=== PATIENT | female | born 1960 | race Caucasian/White ===

== ENCOUNTER 2018-04-20 13:56 | Observation (INO) ==
[2018-04-20 14:34] LABS: BASOPHILS # (AUTO) 0.1 X10^3/uL (0.0-0.1); BASOPHILS % (AUTO) 0.6 % (0.2-1.0); EOSINOPHILS # (AUTO) 0.1 x10^3/uL (0.0-0.2); EOSINOPHILS % (AUTO) 0.6 % (0.9-2.9); HEMATOCRIT 43.1 % (36.0-47.0); HEMOGLOBIN 14.8 g/dL (12.0-16.0); LYMPHOCYTES # (AUTO) 1.2 X10^3/uL (1.3-2.9); LYMPHOCYTES % (AUTO) 7.9 % (21.0-51.0); MEAN CORPUSCULAR HEMOGLOBIN 28.2 pg (27.0-34.0); MEAN CORPUSCULAR HGB CONC 34.2 g/dL (33.0-35.0); MEAN CORPUSCULAR VOLUME 82.3 fL (80.0-100.0); MEAN PLATELET VOLUME 8.5 fL (7.4-11.0); MONOCYTES # (AUTO) 0.7 x10^3/uL (0.3-0.8); MONOCYTES % (AUTO) 5.1 % (0.0-13.0); NEUTROPHILS # (AUTO) 12.5 x10^3/uL (2.2-4.8); NEUTROPHILS % (AUTO) 85.8 % (42.0-75.0); PLATELET COUNT 201 X10^3/uL (150.0-450.0); RED BLOOD COUNT 5.24 X10^6/uL (3.5-5.4); RED CELL DISTRIBUTION WIDTH 12.5 % (11.6-16.5); WHITE BLOOD COUNT 14.6 X10^3/uL (3.6-10.0)
[2018-04-20] MEDS ORDERED: NS 1000 ML 1,000 ML IV ONE (14:35)
[2018-04-20] MEDS ORDERED: TYLENOL 500 MG TAB EXTRA STRENGTH PO ONE ×2 (14:36→14:46)
--- NOTE | 2018-04-20 14:38 | DR.FEVERAD ---
HPI Time seen Time Seen by Provider: 04/20/18 14:25 PCP Primary Care Physician: dr osullivan HPI Comment HPI Comment: PATIENT HAVE HAD UTI AND TREATED SINCE JUL THIS YEAR. HAVE DYSURIA, Complaints/Symptoms Chief Complaint Doctor Comments: PAIN IN THE GROIN AREA WITH CHILLS NOTED TODAY. Chief Complaint:: pt was at work in [place] [address] and started shacking and having tremors and had a knot come up in her gronin area. having UTIs since and still having burning when urinating. Nurses notes reviewed Nurses Notes Review: Yes Source History Provided: Patient Mode of Arrival Mode of Arrival: Ambulatory Timing Onset of Chief Complaint: 04/20/18 Came on: Suddenly Duration Duration: Constant Duration: Hours Context Recent: Treated Infection and Antibiotic Symptoms: None History of: None Modifying factors Modifying factors: Nothing Associated signs and symptoms Associated signs and symptoms: Abdominal pain and Nausea PMH PMH Past Medical History: No Past Surgical History: Yes Surgical History: Abdominal Surgery, Appendectomy, GREASE R[employer] WORKER Surgery, Hysterectomy, Thyroidectomy, Tonsillectomy and Other Family History History of Family Medical Conditions: No Social History Does patient currently use any type of tobacco product: No Have you used tobacco products in the last 12 months: No Type of Tobacco Use: None Does any household member use tobacco: No Alcohol Use: None Do you use any recreational Drugs:: No Lives With: Alone Lives Where: Home infectious screening In the last 2 months have you had wt loss of >10#?: NO Have you had fever, night sweats or hemotysis?: No Have you traveled outside the country in the last 6 months?: No Isolation: Standard ROS Review of Systems Constitutional: No Symptoms Reported Eyes: No Symptoms Reported ENTM: No Symptoms Reported Respiratoy: No Symptoms Reported Cardiovascular: No Symptoms Reported and Other (PAIN) Gastrointestinal/Abdominal: Nausea and Other (GROIN ) Genitourinary: Dysuria and Other (GROIN PAIN.) Neurological: No Symptoms Reported Musculoskeletal: No Symptoms Reported Integumentary: No Symptoms Reported Hematologic/Lymphatic: No Symptoms Reported Endocrine: No Symptoms Reported Psychiatric: No Symptoms Reported All Other Systems: Reviewed and Negative PE Vital Signs Vitals: Temperature 97.8 F Pulse Rate [Left Brachial] 75 Pulse Rate 127 Respiratory Rate 18 Blood Pressure [Left Arm] 124/68 Blood Pressure 175/85 O2 Sat by Pulse Oximetry 98 General Limitations: No Limitations General Appearance: Alert and In No Apparent Distress Head Head Exam: Normal Inspection Eyes Eye exam: Normal Appearance ENT ENT Exam: Normal Exam External Ear Exam: Normal External Inspection TM/Canal Exam: Bilateral: Normal Mouth Exam: Normal Inspection Teeth Exam: Normal Inspection Throat Exam: Normal Inspection Neck Neck Exam: Normal Inspection Respiratory Respiratory Exam: Normal Lung Sounds Bilat Respiratory Exam: Bilateral: Clear to Auscultation Cardiovascular Cardiovascular Exam: Regular Rate Abdominal Exam Abdominal Exam: Normal Bowel Sounds, Soft, Tenderness and Other (TENDERNESS GROIN WITH REDNESS.); negative Hernia Extremities Extremities Exam: Normal Inspection Back Back Exam: Normal Inspection Neurologic Neurological Exam: Alert Psychiatric Psychiatric Exam: Normal Affect Skin Skin Exam: Intact MDM Differential Diagnosis Differential Diagnosis: Dehydration, Pyelonephritis, UTI and Sepsis COURSE Treatment Treatment: SEE ORDERS. Education/Counseling Education/Counseling: Patient Educated On: Diagnosis ROR Labs Reviewed Laboratory Results Reviewed?: Yes Result Diagrams: 04/23/18 05:20 04/23/18 05:20 Laboratory: 04/20/18 14:16 Blood Blood Culture - Final 04/20/18 14:34 Urine,Clean Catch Urine Culture - Final Escherichia Coli WBC 7.6 X10^3/uL (3.6-10.0) 04/23/18 05:20 RBC 4.24 X10^6/uL (3.5-5.4) 04/23/18 05:20 Hgb 12.0 g/dL (12.0-16.0) 04/23/18 05:20 Hct 35.0 % (36.0-47.0) L 04/23/18 05:20 MCV 82.5 fL (80.0-100.0) 04/23/18 05:20 MCH 28.4 pg (27.0-34.0) 04/23/18 05:20 MCHC 34.4 g/dL (33.0-35.0) 04/23/18 05:20 RDW 12.8 % (11.6-16.5) 04/23/18 05:20 Plt Count 166 X10^3/uL (150.0-450.0) 04/23/18 05:20 MPV 8.8 fL (7.4-11.0) 04/23/18 05:20 Neut % (Auto) 59.9 % (42.0-75.0) 04/23/18 05:20 Lymph % (Auto) 23.1 % (21.0-51.0) 04/23/18 05:20 [place] % (Auto) 13.7 % (0.0-13.0) H 04/23/18 05:20 Eos % (Auto) 2.8 % (0.9-2.9) 04/23/18 05:20 Baso % (Auto) 0.5 % (0.2-1.0) 04/23/18 05:20 Neut # (Auto) 4.6 x10^3/uL (2.2-4.8) 04/23/18 05:20 Lymph # (Auto) 1.8 X10^3/uL (1.3-2.9) 04/23/18 05:20 [place] # (Auto) 1.0 x10^3/uL (0.3-0.8) H 04/23/18 05:20 Eos # (Auto) 0.2 x10^3/uL (0.0-0.2) 04/23/18 05:20 Baso # (Auto) 0.0 X10^3/uL (0.0-0.1) 04/23/18 05:20 Absolute Nucleated RBC 0.0 /100WBC 04/23/18 05:20 D-Dimer 560 ng/mL (0-400) H* 04/20/18 14:16 Sodium 142 mmol/L (136-145) 04/23/18 05:20 Corrected Sodium TNP 04/23/18 05:20 Potassium 3.7 mmol/L (3.5-5.1) 04/23/18 05:20 Chloride 108 mmol/L (98-107) H 04/23/18 05:20 Carbon Dioxide 27.3 mmol/L (21-32) 04/23/18 05:20 BUN 6 mg/dL (7-18) L 04/23/18 05:20 Creatinine 0.85 mg/dL (0.55-1.02) 04/23/18 05:20 Est GFR (MDRD) Af Amer > 60 (>60) 04/23/18 05:20 Est GFR (MDRD) Non-Af > 60 (>60) 04/23/18 05:20 Glucose 99 mg/dL (65-99) 04/23/18 05:20 Lactic Acid 1.0 mmol/L (0.4-2.0) 04/22/18 06:10 Calcium 8.2 mg/dL (8.5-10.1) L 04/23/18 05:20 Corrected Calcium 9.5 mg/dL (8.5-10.1) 04/23/18 05:20 Total Bilirubin 0.30 mg/dL (0.2-1.0) 04/23/18 05:20 AST 17 Units/L (15-37) 04/23/18 05:20 ALT 30 Units/L (12-78) 04/23/18 05:20 Alkaline Phosphatase 63 Units/L (46-116) 04/23/18 05:20 Total Protein 6.5 g/dL (6.4-8.2) 04/23/18 05:20 Albumin 2.4 g/dL (3.4-5.0) L 04/23/18 05:20 Globulin 4.1 g/dL (2.5-4.5) 04/23/18 05:20 Albumin/Globulin Ratio 0.6 Ratio (1.1-2.1) L 04/23/18 05:20 Specimen Type Clean catch urine 04/20/18 14:34 Urine Color Yellow (YELLOW) 04/20/18 14:34 Urine Appearance Slightly hazy (CLEAR) 04/20/18 14:34 Urine pH 6.0 (5.0 - 8.0) 04/20/18 14:34 Ur Specific [place] 1.015 (1.000-1.030) 04/20/18 14:34 Urine Protein 2+ (NEGATIVE) 04/20/18 14:34 Urine Glucose (UA) Negative (NEGATIVE) 04/20/18 14:34 Urine Ketones Negative (NEGATIVE) 04/20/18 14:34 Urine Occult Blood 1+ (NEGATIVE) 04/20/18 14:34 Urine Nitrite Positive (NEGATIVE) 04/20/18 14:34 Urine Bilirubin Negative (NEGATIVE) 04/20/18 14:34 Urine Urobilinogen Normal (NORMAL) 04/20/18 14:34 Ur Leukocyte Esterase 1+ (NEGATIVE) 04/20/18 14:34 Urine RBC 0-2 /HPF (NONE SEEN) 04/20/18 14:34 Urine WBC 30-50 /HPF (NONE SEEN) 04/20/18 14:34 Ur Squamous Epith Cells Few /HPF (NEGATIVE) 04/20/18 14:34 Urine Bacteria 3+ /HPF (NEGATIVE) 04/20/18 14:34 Ur Culture Indicated? Yes/culture set up 04/20/18 14:34 Vancomycin Trough 6.0 ug/mL (15-20) L 04/22/18 08:20 XRAY XRAY Interpreted by: Radiologist XRAY Findings: REPORT NOTED. Instructions Instructions: Cellulitis, Adult Heartburn Hypothyroidism Forms: Patient Portal
[2018-04-20] MEDS ORDERED: NS 1000 ML 1,000 ML ONE (14:43)
[2018-04-20 14:45] LABS: BILIRUBIN,URINE NEGATIVE (NEGATIVE); BLOOD/HEMOGLOBIN,URINE 1+ (NEGATIVE); GLUCOSE, URINE NEGATIVE (NEGATIVE); KETONES,URINE NEGATIVE (NEGATIVE); LEUKOCYTE ESTERASE ,URINE 1+ (NEGATIVE); NITRITES,URINE POSITIVE (NEGATIVE); PROTEIN,URINE 2+ (NEGATIVE); UROBILINOGEN,URINE NORMAL (NORMAL)
[2018-04-20 14:47] LABS: ALANINE AMINOTRANSFERASE 33 Units/L (12-78); ALBUMIN 4.2 g/dL (3.4-5.0); ALKALINE PHOSPHATASE 70 Units/L (46-116); ASPARTATE AMINO TRANSFERASE 23 Units/L (15-37); BLOOD UREA NITROGEN 16 mg/dL (7-18); CALCIUM 9.2 mg/dL (8.5-10.1); CARBON DIOXIDE 26.5 mmol/L (21-32); CHLORIDE 100 mmol/L (98-107); CREATININE 0.94 mg/dL (0.55-1.02); SODIUM 137 mmol/L (136-145); TOTAL PROTEIN 8.4 g/dL (6.4-8.2); eGFR NON BLACK RACES > 60 (>60)
[2018-04-20 14:56] LABS: APPEARANCE,URINE SLIGHTLY HAZY (CLEAR); COLOR,URINE YELLOW (YELLOW)
[2018-04-20 14:57] LABS: BACTERIA,URINE 3+ /HPF (NEGATIVE); RBC,URINE 0-2 /HPF (NONE SEEN); SQUAMOUS EPITHELIAL CELL,UR FEW /HPF (NEGATIVE)
[2018-04-20 14:59] LABS: LACTIC ACID 2.4 mmol/L (0.4-2.0)
[2018-04-20] MEDS ORDERED: ZOSYN VIAL 3.375 GRAMS 3.375 G in NS 100 ML IV + SPIKE MINIBAG* 100 ML IV ONE (15:13)
[2018-04-20] MEDS ORDERED: ZOSYN VIAL 3.375 GRAMS IV ONE (15:53)
[2018-04-20] MEDS ORDERED: NS 100 ML IV + SPIKE MINIBAG* 100 ML IV ONE (15:54)
[2018-04-20] MEDS ORDERED: DEMEROL INJ IVP ONE (16:12)
[2018-04-20] MEDS ORDERED: ZOFRAN INJ 4 MG VIAL IVP ONE (16:12)
[2018-04-20] MEDS ORDERED: ZOFRAN INJ 4 MG VIAL ONE (16:19)
[2018-04-20] MEDS ORDERED: DEMEROL INJ ONE (16:19)
--- NOTE | 2018-04-20 16:48 | VAS ---
History: Left leg pain and fever and elevated white blood cell count Study: Venous Doppler of the left lower extremity Findings: There is augmentation compression and color Doppler flow blood flow in the left common femo ral and superficial femoral and popliteal veins. There is an enlarged lymph node in left groin measur ing 3.7 x 1 . 9 cm. Impression: 1. No evidence for deep venous thrombosis in the left lower extremity 2. Enlarged inguinal lymph node Reported By:
[2018-04-20] MEDS ORDERED: PHENERGAN INJ 25 MG IV ONE (17:03)
[2018-04-20] MEDS ORDERED: PHENERGAN INJ 25 MG ONE (17:04)
[2018-04-20] MEDS ORDERED: NS 1/2 1000 ML IV 1,000 ML IV ONE (19:37)
[2018-04-20] MEDS: TYLENOL 325 MG TAB PO PRN (19:53)
[2018-04-20] MEDS: NS 1/2 1000 ML IV 1,000 ML IV SCH (19:53)
[2018-04-20] MEDS ORDERED: PHENERGAN TAB 25 MG PO PRN (19:57)
[2018-04-20 20:30] VITALS: BMI 30.3
[2018-04-20] MEDS: VANCOMYCIN HCL 1 GM VIAL 1 G in D5W 250 ML IV 250 ML IV SCH (20:46)
[2018-04-20] MEDS: ZOSYN VIAL 3.375 GRAMS 3.375 G in NS 100 ML IV + SPIKE MINIBAG* 100 ML IV SCH (22:14)
[2018-04-21] MEDS ORDERED: NS 1/2 1000 ML IV 1,000 ML IV ONE ×2 (04:24→18:39)
[2018-04-21] MEDS: NS 1/2 1000 ML IV 1,000 ML IV SCH ×3 (04:29→18:26)
[2018-04-21] MEDS: ZOSYN VIAL 3.375 GRAMS 3.375 G in NS 100 ML IV + SPIKE MINIBAG* 100 ML IV SCH ×3 (05:03→22:15)
[2018-04-21 06:11] LABS: BASOPHILS % (AUTO) 0.2 % (0.2-1.0); HEMATOCRIT 39.7 % (36.0-47.0); HEMOGLOBIN 13.6 g/dL (12.0-16.0); LYMPHOCYTES # (AUTO) 0.8 X10^3/uL (1.3-2.9); LYMPHOCYTES % (AUTO) 4.1 % (21.0-51.0); MEAN CORPUSCULAR HEMOGLOBIN 28.2 pg (27.0-34.0); MEAN CORPUSCULAR HGB CONC 34.2 g/dL (33.0-35.0); MEAN CORPUSCULAR VOLUME 82.3 fL (80.0-100.0); MEAN PLATELET VOLUME 8.6 fL (7.4-11.0); MONOCYTES # (AUTO) 1.3 x10^3/uL (0.3-0.8); NEUTROPHILS # (AUTO) 16.3 x10^3/uL (2.2-4.8); NEUTROPHILS % (AUTO) 88.7 % (42.0-75.0); PLATELET COUNT 180 X10^3/uL (150.0-450.0); RED BLOOD COUNT 4.83 X10^6/uL (3.5-5.4); RED CELL DISTRIBUTION WIDTH 12.7 % (11.6-16.5); WHITE BLOOD COUNT 18.4 X10^3/uL (3.6-10.0)
[2018-04-21 06:20] LABS: ALANINE AMINOTRANSFERASE 48 Units/L (12-78); ALBUMIN 3.1 g/dL (3.4-5.0); ALKALINE PHOSPHATASE 61 Units/L (46-116); ASPARTATE AMINO TRANSFERASE 37 Units/L (15-37); BLOOD UREA NITROGEN 10 mg/dL (7-18); CALCIUM 8.5 mg/dL (8.5-10.1); CARBON DIOXIDE 25.7 mmol/L (21-32); CHLORIDE 102 mmol/L (98-107); COR CA(FOR HYPOALB) 9.2 mg/dL (8.5-10.1); COR NA(FOR HYPERGLY) 136 mmol/L (136-145); CREATININE 0.88 mg/dL (0.55-1.02); SODIUM 135 mmol/L (136-145); TOTAL PROTEIN 7.2 g/dL (6.4-8.2); eGFR NON BLACK RACES > 60 (>60)
[2018-04-21] MEDS: VANCOMYCIN HCL 1 GM VIAL 1 G in D5W 250 ML IV 250 ML IV SCH ×2 (08:18→20:51)
[2018-04-21] MEDS: TYLENOL 325 MG TAB PO PRN (08:53)
[2018-04-21] MEDS: MORPHINE SULFATE INJ 4 MG IVP PRN ×2 (10:25→19:36)
[2018-04-21] MEDS: FIORICET TAB PO PRN (15:49)
--- NOTE | 2018-04-21 16:56 | DR.H&P ---
H&P - History & Physical for Day of: H&P Date: 04/20/18 - Chief Complaint Chief Complaint: FEVER, CHILLS, LEFT LEG PAIN AND SWELLING - History of Present Illness History of Present Illness: IS A 57 YEAR OLD PATIENT OF . SHE PRESENTED TO THE ER WITH COMPLAINTS OF FEVER, CHILLS, AND A MASS TO THE GROIN AREA. SHE ALSO REPORTS BURNING ON URINATION. ON EXAMINATION, SHE IS NOTED WITH REDNESS TO THE LEFT UPPER LEG WELL A MASS THE LEFT GROIN. SHE REPORTS PAIN TO AREA. ON ARRIVAL, VITALS WERE 103.5, 127, 18, 98%, 175/85. LABS WERE OBTAINED. ABNORMAL LAB VALUES INCLUDE THE FOLLOWING: WBC 14.6, D-DIMER 560, LACTIC ACID 2.4, TOTAL PROTEIN 8.4. URINALYSIS REVEALED WBC 30-50, RBC 0-2, LEUKOCYTES 1+, BACTERIA 3+, PROTEIN 2+. URINE CULTURE PENDING. A VENOUS DOPPLER OF THE LEFT LOWER EXTREMITY WAS OBTAINED AND REVEALED: No evidence for deep venous thrombosis in the left lower extremity. Enlarged inguinal lymph node. SHE WAS GIVEN PHENERGAN 12.5MG IV, ZOFRAN 4MG IV, DEMEROL 25MG IV, TYLENOL 1000MG, ZOSYN 3.375GM, AND A NORMAL SALINE BOLUS IN THE ER. ONLY SLIGHT IMPROVEMENT IN SYMPTOMS NOTED. SHE WAS ADMITTED TO THE HOSPITAL FOR FURTHER EVALUATION AND TREATMENT. SHE WAS STARTED ON ZOSYN 3.375GM IV Q8H, VANCOMYCIN 1GM IV Q12H, MORPHIN 4MG IV Q6H PRN PAIN, AND NS AT 125ML/HR. WE PLAN TO FOLLOW UP WITH AM LABS AND CONTINUE TO MONITOR PATIENT. - Past Surgical History Surgical History: Hysterectomy, Tonsillectomy - Social History Does patient currently use any type of tobacco product: No Have you used tobacco products in the last 12 months: No Type of Tobacco Use: None Does any household member use tobacco: No Alcohol Use: None Drug Use: None - Medications Home Medications: No Known Drug Allergies Allergy (Verified 04/20/18 14:24) CONTINUE taking the following medications estradiol 1 mg PO DAILY 04/20/18 [History] - Physical Exam Vital Signs: Temperature 98.8 F Pulse Rate [Left Brachial] 96 Pulse Rate 127 Respiratory Rate 18 Blood Pressure [Left Arm] 129/80 Blood Pressure 175/85 O2 Sat by Pulse Oximetry 96 - Allergies Allergies/Adverse Reactions: Allergies Allergy/AdvReac Type Severity Reaction Status Date / Time No Known Drug Allergies Allergy Verified 04/20/18 14:24
[2018-04-21] MEDS ORDERED: NS 100 ML IV 100 ML IV ONE (17:45)
--- NOTE | 2018-04-21 18:36 | CT ---
CT abdomen and pelvis with contrast Indication: Abdominal pain, left groin cellulitis Comparison: None Technique: CT images of the abdomen and pelvis were obtained with IV and oral contrast. Automatic exp osure control was utilized. Findings: The lung bases are grossly clear. No acute osseous abnormality. There is subcutaneous fat stranding within the left inguinal region and anterior proximal left lower extremity associated with several mildly enlarged but morphologically normal appearing inguinal lymph nodes. No discrete collection or soft tissue gas observed. The inguinal vessels appear grossly taryn l for technique. The liver, gallbladder, spleen, stomach, duodenum, pancreas, adrenals, and kidneys demonstrate no sig nificant abnormality. No significant thickening or dilatation of the lower GI tract. Previous appende ctomy and hysterectomy noted. The urinary bladder and rectum are unremarkable. No free fluid or intra -abdominal adenopathy. Impression: Nonspecific left inguinal and proximal thigh subcutaneous fat stranding, suggestive for c ellulitis without discrete collection or soft tissue gas. [place] left inguinal lymph nodes are likely reactive. Otherwise no acute abnormality within the abdomen or pelvis. Reported By:
--- NOTE | 2018-04-21 20:44 | PCM.PROG ---
Progress Note - Progress Note for Day of Date of Exam: 04/21/18 - Subjective Subjective: WAS ADMITTED FOR CELLULITIS OF THE LEFT GROIN AND AN ENLARGED INGUINAL HERNIA. TODAY, SHE IS ALERT AND ORIENTED, LYING IN BED ON MORNING ROUNDS. SHE IS NOTED WITH COMPLAINTS OF TENDERNESS TO THE LEFT GROIN AND LEG. SHE ALSO COMPLAINS OF A HEADACHE. ON EXAMINATION, REDNESS APPEARS TO HAVE INCREASED AND IS NOW OUTSIDE OF PREVIOUSLY MARKED AREAS OF REDNESS. HER VITALS TODAY ARE 100.6-111-18-96%-123/68. LABS WERE OBTAINED. ABNORMAL LAB VALUES INCLUDE THE FOLLOWING: WBC INCREASED TO 18.4, SODIUM 135, GLUCOSE 122, ALBUMIN 3.1. SHE IS CURRENTLY RECEIVING IV VANCOMYCIN AND ZOSYN. WE WILL START FIORICET 2TABS QID PRN PAIN AND OBTAIN AN ABDOMEN/PELVIS CT WITH CONTRAST, WITH FURTHER ATTENTION TO THE LEFT GROIN. OTHERWISE, WE PLAN TO FOLLOW UP WITH AM LABS AND CONTINUE TO MONITOR PATIENT. - Past Medical Family Social History Past Med/Fam/Surg Hx: No changes since H&P Allergies: Allergies No Known Drug Allergies Allergy (Verified 04/20/18 14:24) - Review of Systems ROS: No change since H&P - Vital Signs and I&O's Vital Signs: Temperature 98.8 F Pulse Rate [Left Brachial] 96 Pulse Rate 127 Respiratory Rate 18 Blood Pressure [Left Arm] 129/80 Blood Pressure 175/85 O2 Sat by Pulse Oximetry 96 Intake and Output: Intake & Output 04/19/18 04/20/18 04/21/18 04/22/18 11:59 11:59 11:59 11:59 Intake Total 1675 / 1675 700 / 700 Balance 1675 / 1675 700 / 700 - Physical Exam Oriented: Normal Eyes: Normal Ear: Normal Nose: Normal Throat: Normal Respiratory: Normal Cardiovascular: Normal : Normal Auscultation: Bowel Sounds: Normal Palpation: Normal Tenderness: Suprapubic, Mild. negative: Rebound, Guarding, Rigidity Skin: Red (LEFT GROIN ), Tender, Hot Musculoskeletal: Normal Psychiatric: Normal Mood Description: Calm Affect: Normal Speech Pattern: Clear, Appropriate - Laboratory and Diagnostics Result Diagrams: 04/21/18 05:20 04/21/18 05:20 Labs: 04/20/18 14:34 Urine,Clean Catch Urine Culture - Preliminary Laboratory WBC 18.4 X10^3/uL (3.6-10.0) H 04/21/18 05:20 RBC 4.83 X10^6/uL (3.5-5.4) 04/21/18 05:20 Hgb 13.6 g/dL (12.0-16.0) 04/21/18 05:20 Hct 39.7 % (36.0-47.0) 04/21/18 05:20 MCV 82.3 fL (80.0-100.0) 04/21/18 05:20 MCH 28.2 pg (27.0-34.0) 04/21/18 05:20 MCHC 34.2 g/dL (33.0-35.0) 04/21/18 05:20 RDW 12.7 % (11.6-16.5) 04/21/18 05:20 Plt Count 180 X10^3/uL (150.0-450.0) 04/21/18 05:20 MPV 8.6 fL (7.4-11.0) 04/21/18 05:20 Neut % (Auto) 88.7 % (42.0-75.0) H 04/21/18 05:20 Lymph % (Auto) 4.1 % (21.0-51.0) L 04/21/18 05:20 [place] % (Auto) 7.0 % (0.0-13.0) 04/21/18 05:20 Eos % (Auto) 0.0 % (0.9-2.9) L 04/21/18 05:20 Baso % (Auto) 0.2 % (0.2-1.0) 04/21/18 05:20 Neut # (Auto) 16.3 x10^3/uL (2.2-4.8) H 04/21/18 05:20 Lymph # (Auto) 0.8 X10^3/uL (1.3-2.9) L 04/21/18 05:20 [place] # (Auto) 1.3 x10^3/uL (0.3-0.8) H 04/21/18 05:20 Eos # (Auto) 0.0 x10^3/uL (0.0-0.2) 04/21/18 05:20 Baso # (Auto) 0.0 X10^3/uL (0.0-0.1) 04/21/18 05:20 Absolute Nucleated RBC 0.0 /100WBC 04/21/18 05:20 D-Dimer 560 ng/mL (0-400) H* 04/20/18 14:16 Sodium 135 mmol/L (136-145) L 04/21/18 05:20 Corrected Sodium 136 mmol/L (136-145) 04/21/18 05:20 Potassium 4.2 mmol/L (3.5-5.1) 04/21/18 05:20 Chloride 102 mmol/L (98-107) 04/21/18 05:20 Carbon Dioxide 25.7 mmol/L (21-32) 04/21/18 05:20 BUN 10 mg/dL (7-18) 04/21/18 05:20 Creatinine 0.88 mg/dL (0.55-1.02) 04/21/18 05:20 Est GFR (MDRD) Af Amer > 60 (>60) 04/21/18 05:20 Est GFR (MDRD) Non-Af > 60 (>60) 04/21/18 05:20 Glucose 122 mg/dL (65-99) H 04/21/18 05:20 Lactic Acid 2.4 mmol/L (0.4-2.0) H 04/20/18 14:16 Calcium 8.5 mg/dL (8.5-10.1) 04/21/18 05:20 Corrected Calcium 9.2 mg/dL (8.5-10.1) 04/21/18 05:20 Total Bilirubin 1.00 mg/dL (0.2-1.0) 04/21/18 05:20 AST 37 Units/L (15-37) 04/21/18 05:20 ALT 48 Units/L (12-78) 04/21/18 05:20 Alkaline Phosphatase 61 Units/L (46-116) 04/21/18 05:20 Total Protein 7.2 g/dL (6.4-8.2) 04/21/18 05:20 Albumin 3.1 g/dL (3.4-5.0) L 04/21/18 05:20 Globulin 4.1 g/dL (2.5-4.5) 04/21/18 05:20 Albumin/Globulin Ratio 0.8 Ratio (1.1-2.1) L 04/21/18 05:20 Specimen Type Clean catch urine 04/20/18 14:34 Urine Color Yellow (YELLOW) 04/20/18 14:34 Urine Appearance Slightly hazy (CLEAR) 04/20/18 14:34 Urine pH 6.0 (5.0 - 8.0) 04/20/18 14:34 Ur Specific [place] 1.015 (1.000-1.030) 04/20/18 14:34 Urine Protein 2+ (NEGATIVE) 04/20/18 14:34 Urine Glucose (UA) Negative (NEGATIVE) 04/20/18 14:34 Urine Ketones Negative (NEGATIVE) 04/20/18 14:34 Urine Occult Blood 1+ (NEGATIVE) 04/20/18 14:34 Urine Nitrite Positive (NEGATIVE) 04/20/18 14:34 Urine Bilirubin Negative (NEGATIVE) 04/20/18 14:34 Urine Urobilinogen Normal (NORMAL) 04/20/18 14:34 Ur Leukocyte Esterase 1+ (NEGATIVE) 04/20/18 14:34 Urine RBC 0-2 /HPF (NONE SEEN) 04/20/18 14:34 Urine WBC 30-50 /HPF (NONE SEEN) 04/20/18 14:34 Ur Squamous Epith Cells Few /HPF (NEGATIVE) 04/20/18 14:34 Urine Bacteria 3+ /HPF (NEGATIVE) 04/20/18 14:34 Ur Culture Indicated? Yes/culture set up 04/20/18 14:34 - Plan (1) Lower extremity cellulitis Status: Acute Qualifiers: Laterality: left Qualified Code(s): L03.116 - Cellulitis of left lower limb Plan: IV VANCOMYCIN, IV ZOSYN, OBTAIN CT WITH CONTAST, CONTINUE TO MONITOR
[2018-04-22] MEDS: MORPHINE SULFATE INJ 4 MG IVP PRN ×2 (02:40→08:29)
[2018-04-22] MEDS ORDERED: NS 1/2 1000 ML IV 1,000 ML IV ONE ×3 (04:12→20:13)
[2018-04-22] MEDS: NS 1/2 1000 ML IV 1,000 ML IV SCH ×4 (04:20→23:00)
[2018-04-22] MEDS: ZOSYN VIAL 3.375 GRAMS 3.375 G in NS 100 ML IV + SPIKE MINIBAG* 100 ML IV SCH ×3 (05:45→22:50)
[2018-04-22 06:01] LABS: BASOPHILS % (AUTO) 0.4 % (0.2-1.0); EOSINOPHILS # (AUTO) 0.1 x10^3/uL (0.0-0.2); EOSINOPHILS % (AUTO) 1.1 % (0.9-2.9); HEMATOCRIT 36.2 % (36.0-47.0); HEMOGLOBIN 12.2 g/dL (12.0-16.0); LYMPHOCYTES % (AUTO) 15.8 % (21.0-51.0); MEAN CORPUSCULAR HEMOGLOBIN 27.9 pg (27.0-34.0); MEAN CORPUSCULAR HGB CONC 33.7 g/dL (33.0-35.0); MEAN CORPUSCULAR VOLUME 82.8 fL (80.0-100.0); MEAN PLATELET VOLUME 8.7 fL (7.4-11.0); MONOCYTES # (AUTO) 1.2 x10^3/uL (0.3-0.8); MONOCYTES % (AUTO) 9.4 % (0.0-13.0); NEUTROPHILS # (AUTO) 9.2 x10^3/uL (2.2-4.8); NEUTROPHILS % (AUTO) 73.3 % (42.0-75.0); PLATELET COUNT 155 X10^3/uL (150.0-450.0); RED BLOOD COUNT 4.37 X10^6/uL (3.5-5.4); RED CELL DISTRIBUTION WIDTH 12.9 % (11.6-16.5); WHITE BLOOD COUNT 12.5 X10^3/uL (3.6-10.0)
[2018-04-22 06:10] LABS: ALANINE AMINOTRANSFERASE 37 Units/L (12-78); ALBUMIN 2.5 g/dL (3.4-5.0); ALKALINE PHOSPHATASE 62 Units/L (46-116); ASPARTATE AMINO TRANSFERASE 20 Units/L (15-37); BLOOD UREA NITROGEN 7 mg/dL (7-18); CALCIUM 8.1 mg/dL (8.5-10.1); CARBON DIOXIDE 26.2 mmol/L (21-32); CHLORIDE 105 mmol/L (98-107); COR CA(FOR HYPOALB) 9.3 mg/dL (8.5-10.1); CREATININE 0.89 mg/dL (0.55-1.02); SODIUM 138 mmol/L (136-145); TOTAL PROTEIN 6.5 g/dL (6.4-8.2); eGFR NON BLACK RACES > 60 (>60)
[2018-04-22] MEDS: FIORICET TAB PO PRN (08:28)
[2018-04-22] MEDS ORDERED: PHARMACY COMMENT IV NR (08:30)
[2018-04-22 08:59] LABS: CREATININE 0.79 mg/dL (0.55-1.02)
[2018-04-22] MEDS: VANCOMYCIN HCL 1 GM VIAL 1 G in D5W 250 ML IV 250 ML IV SCH (09:34)
[2018-04-22] MEDS ORDERED: VANCOMYCIN HCL 500 MG VIAL ONE ×2 (09:39→20:35)
[2018-04-22] MEDS: VANCOMYCIN HCL 1 GM VIAL 1 G, VANCOMYCIN HCL 500 MG VIAL 250 MG in D5W 250 ML IV 250 ML IV SCH ×2 (09:57→21:07)
[2018-04-22] MEDS: TORADOL 30 MG VIAL IVP SCH ×3 (11:30→21:09)
[2018-04-22] MEDS ORDERED: ZOFRAN INJ 4 MG VIAL ONE (17:40)
[2018-04-22] MEDS ORDERED: ZOFRAN INJ 4 MG VIAL IVP PRN (17:42)
[2018-04-22] MEDS ORDERED: D5W 250 ML IV 250 ML IV ONE (20:35)
[2018-04-22] MEDS ORDERED: VANCOMYCIN HCL 1 GM VIAL ONE (20:35)
[2018-04-23] MEDS: TORADOL 30 MG VIAL IVP SCH ×2 (03:54→10:06)
[2018-04-23] MEDS: NS 1/2 1000 ML IV 1,000 ML IV SCH (03:54)
[2018-04-23] MEDS: ZOSYN VIAL 3.375 GRAMS 3.375 G in NS 100 ML IV + SPIKE MINIBAG* 100 ML IV SCH (05:40)
[2018-04-23 06:04] LABS: ALANINE AMINOTRANSFERASE 30 Units/L (12-78); ALBUMIN 2.4 g/dL (3.4-5.0); ALKALINE PHOSPHATASE 63 Units/L (46-116); ASPARTATE AMINO TRANSFERASE 17 Units/L (15-37); BLOOD UREA NITROGEN 6 mg/dL (7-18); CALCIUM 8.2 mg/dL (8.5-10.1); CARBON DIOXIDE 27.3 mmol/L (21-32); CHLORIDE 108 mmol/L (98-107); COR CA(FOR HYPOALB) 9.5 mg/dL (8.5-10.1); CREATININE 0.85 mg/dL (0.55-1.02); SODIUM 142 mmol/L (136-145); TOTAL PROTEIN 6.5 g/dL (6.4-8.2); eGFR NON BLACK RACES > 60 (>60)
[2018-04-23 06:05] LABS: BASOPHILS % (AUTO) 0.5 % (0.2-1.0); EOSINOPHILS # (AUTO) 0.2 x10^3/uL (0.0-0.2); EOSINOPHILS % (AUTO) 2.8 % (0.9-2.9); LYMPHOCYTES # (AUTO) 1.8 X10^3/uL (1.3-2.9); LYMPHOCYTES % (AUTO) 23.1 % (21.0-51.0); MEAN CORPUSCULAR HEMOGLOBIN 28.4 pg (27.0-34.0); MEAN CORPUSCULAR HGB CONC 34.4 g/dL (33.0-35.0); MEAN CORPUSCULAR VOLUME 82.5 fL (80.0-100.0); MEAN PLATELET VOLUME 8.8 fL (7.4-11.0); MONOCYTES % (AUTO) 13.7 % (0.0-13.0); NEUTROPHILS # (AUTO) 4.6 x10^3/uL (2.2-4.8); NEUTROPHILS % (AUTO) 59.9 % (42.0-75.0); PLATELET COUNT 166 X10^3/uL (150.0-450.0); RED BLOOD COUNT 4.24 X10^6/uL (3.5-5.4); RED CELL DISTRIBUTION WIDTH 12.8 % (11.6-16.5); WHITE BLOOD COUNT 7.6 X10^3/uL (3.6-10.0)
[2018-04-23] MEDS ORDERED: NS 1/2 1000 ML IV 0 ML IV ONE (08:47)
[2018-04-23] MEDS: TYLENOL 325 MG TAB PO PRN (09:22)
[2018-04-23 12:15] VITALS: BP 124/68
[2018-04-23] MEDS ORDERED: PHARMACY COMMENT IV NR (20:30)
--- NOTE | 2018-06-08 22:19 | DR.CARTERD ---
- Discharge Summary for: Discharge Summary for Date of:: 04/23/18 - Admission Date Date of Admission: 04/20/18 - Admission Diagnoses Admission Diagnosis: (1) Lower extremity cellulitis - Discharge Date Discharge Date: 04/23/18 - Discharge Diagnoses Discharge Diagnosis: (1) Lower extremity cellulitis - Hospital Course Hospital Course: DAY ONE, IS A 57 YEAR OLD PATIENT OF . SHE PRESENTED TO THE ER WITH COMPLAINTS OF FEVER, CHILLS, AND A MASS TO THE GROIN AREA. SHE ALSO REPORTED BURNING ON URINATION. ON EXAMINATION, SHE WAS NOTED WITH REDNESS TO THE LEFT UPPER LEG WELL A MASS THE LEFT GROIN. SHE REPORTED PAIN TO AREA. ON ARRIVAL, VITALS WERE 103.5, 127, 18, 98%, 175/85. LABS WERE OBTAINED. ABNORMAL LAB VALUES INCLUDE THE FOLLOWING: WBC 14.6, D-DIMER 560, LACTIC ACID 2.4, TOTAL PROTEIN 8.4. URINALYSIS REVEALED WBC 30-50, RBC 0-2, LEUKOCYTES 1+, BACTERIA 3+, PROTEIN 2+. URINE CULTURE PENDING. A VENOUS DOPPLER OF THE LEFT LOWER EXTREMITY WAS OBTAINED AND REVEALED: No evidence for deep venous thrombosis in the left lower extremity. Enlarged inguinal lymph node. SHE WAS GIVEN PHENERGAN 12.5MG IV, ZOFRAN 4MG IV, DEMEROL 25MG IV, TYLENOL 1000MG, ZOSYN 3.375GM, AND A NORMAL SALINE BOLUS IN THE ER. ONLY SLIGHT IMPROVEMENT IN SYMPTOMS NOTED. SHE WAS ADMITTED TO THE HOSPITAL FOR FURTHER EVALUATION AND TREATMENT. SHE WAS STARTED ON ZOSYN 3.375GM IV Q8H, VANCOMYCIN 1GM IV Q12H, MORPHIN 4MG IV Q6H PRN PAIN, AND NS AT 125ML/HR. WE PLAN TO FOLLOW UP WITH AM LABS AND CONTINUE TO MONITOR PATIENT. DAY TWO, SHE WAS ALERT AND ORIENTED, LYING IN BED ON MORNING ROUNDS. SHE WAS NOTED WITH COMPLAINTS OF TENDERNESS TO THE LEFT GROIN AND LEG. SHE ALSO COMPLAINED OF A HEADACHE. ON EXAMINATION, REDNESS APPEARED TO HAVE INCREASED AND IS NOW OUTSIDE OF PREVIOUSLY MARKED AREAS OF REDNESS. HER VITALS TODAY ARE 100.6-111-18-96%-123/68. LABS WERE OBTAINED. ABNORMAL LAB VALUES INCLUDE THE FOLLOWING: WBC INCREASED TO 18.4, SODIUM 135, GLUCOSE 122, ALBUMIN 3.1. SHE IS CURRENTLY RECEIVING IV VANCOMYCIN AND ZOSYN. WE WILL START FIORICET 2TABS QID PRN PAIN AND OBTAIN AN ABDOMEN/PELVIS CT WITH CONTRAST, WITH FURTHER ATTENTION TO THE LEFT GROIN. WE PLANNED TO FOLLOW UP WITH AM LABS AND CONTINUED TO MONITOR PATIENT. DAY THREE, REDNESS NOTED TO LEFT THIGH, POPLITEAL, AND LOWER LEG. REDNESS IS NOTED TO BE INSIDE THE MARKED BOARDER AND DECREASING. WBC DECREASED TO 12.5. WE CONTINUED WITH CURRENT PLAN OF TREATMENT AND CONTINUED TO MONITOR PATIENT. DAY FOUR, REDNESS TO LEFT THIGH, POPLITEAL, AND LOWER LEG CONTINUED TO DECREASE. LABS WERE WITHIN NORMAL LIMITS. WBC DECREASED TO 7.6. NO DISTRESS NOTED. BLOOD CULTURE NEGATIVE. WE PLANNED FOR DISCHARGE. INSTRUCTIONS FOR MEDI CATIONS AND FOLLOW UP WERE DISCUSSED WITH PATIENT AND FAMILY, BOTH VOICED UNDERSTANDING. PATIENT DISCHARGED HOME IN STABLE CONDITION WITH FAMILY. - Discharge Medications Discharge Medications: Home Medication List estradiol 1 mg PO DAILY 04/20/18 [History] cefdinir 300 mg PO Q12H #20 cap 04/23/18 [Rx] fluconazole [Diflucan] 100 mg PO QDAY #5 tab 04/23/18 [Rx] hydrocodone-acetaminophen [[place]] 1 tab PO Q6H #20 tab 04/23/18 [Rx] Prescriptions: cefdinir Santiago Schmid fluconazole [Diflucan] Santiago Schmid hydrocodone-acetaminophen [[place]] Santiago Schmid - Discharge Disposition Discharge Disposition: PATIENT TO FOLLOW UP IN OUR OFFICE IN ONE WEEK.
--- NOTE | 2018-07-22 16:08 | PCM.PROG ---
Progress Note - Progress Note for Day of Date of Exam: 04/22/18 - Subjective Subjective: WAS ADMITTED FOR CELLULITIS OF THE LEFT GROIN AND AN ENLARGED INGUINAL HERNIA. TODAY, SHE IS ALERT AND ORIENTED, LYING IN BED ON MORNING ROUNDS. SHE IS NOTED WITH COMPLAINTS OF TENDERNESS TO THE LEFT GROIN AND LEG. ON EXAMINATION, REDNESS APPEARS TO HAVE INCREASED AND IS NOW OUTSIDE OF PREVIOUSLY MARKED AREAS OF REDNESS. HER VITALS TODAY ARE 98.7-89-18-93%-116/67. LABS WERE OBTAINED. ABNORMAL LAB VALUES INCLUDE THE FOLLOWING: WBC DECREASED TO 12.5, GLUCOSE 104, CALCIUM 8.1, ALBUMIN 2.5. SHE IS CURRENTLY RECEIVING IV VANCOMYCIN AND ZOSYN. WE OBTAINED AN ABDOMEN/PELVIS CT WITH CONTRAST YESTERDAY. IT REVEALED: Nonspecific left inguinal and proximal thigh subcutaneous fat str anding, suggestive for cellulitis without discrete collection or soft tissue gas. Shotty left inguinal lymph nodes are likely reactive. Otherwise no acute abnormality within the abdomen or pelvis. WE WILL CONTINUE WITH IV ANTIBIOTICS AND CURRENT PLAN OF CARE TODAY. OTHERWISE, WE PLAN TO FOLLOW UP WITH AM LABS AND CONTINUE TO MONITOR PATIENT. - Past Medical Family Social History Past Med/Fam/Surg Hx: No changes since H&P Allergies: Allergies No Known Drug Allergies Allergy (Verified 04/20/18 14:24) - Review of Systems ROS: No change since H&P - Vital Signs and I&O's Vital Signs: Temperature 97.8 F Pulse Rate [Left Brachial] 75 Pulse Rate 127 Respiratory Rate 18 Blood Pressure [Left Arm] 124/68 Blood Pressure 175/85 O2 Sat by Pulse Oximetry 98 - Physical Exam Oriented: Normal Eyes: Normal Ear: Normal Nose: Normal Throat: Normal Respiratory: Normal Cardiovascular: Normal : Normal Auscultation: Bowel Sounds: Normal Palpation: Normal Tenderness: Suprapubic, Mild. negative: Rebound, Guarding, Rigidity Skin: Red (LEFT GROIN ), Tender, Hot Musculoskeletal: Normal Psychiatric: Normal Mood Description: Calm Affect: Normal Speech Pattern: Clear, Appropriate - Laboratory and Diagnostics Result Diagrams: 04/23/18 05:20 04/23/18 05:20 Labs: 04/20/18 14:16 Blood Blood Culture - Final 04/20/18 14:34 Urine,Clean Catch Urine Culture - Final Escherichia Coli Laboratory WBC 7.6 X10^3/uL (3.6-10.0) 10/05/18 05:20 RBC 4.24 X10^6/uL (3.5-5.4) 04/23/18 05:20 Hgb 12.0 g/dL (12.0-16.0) 04/23/18 05:20 Hct 35.0 % (36.0-47.0) L 04/23/18 05:20 MCV 82.5 fL (80.0-100.0) 04/23/18 05:20 MCH 28.4 pg (27.0-34.0) 04/23/18 05:20 MCHC 34.4 g/dL (33.0-35.0) 04/23/18 05:20 RDW 12.8 % (11.6-16.5) 04/23/18 05:20 Plt Count 166 X10^3/uL (150.0-450.0) 04/23/18 05:20 MPV 8.8 fL (7.4-11.0) 04/23/18 05:20 Neut % (Auto) 59.9 % (42.0-75.0) 04/23/18 05:20 Lymph % (Auto) 23.1 % (21.0-51.0) 04/23/18 05:20 [place] % (Auto) 13.7 % (0.0-13.0) H 04/23/18 05:20 Eos % (Auto) 2.8 % (0.9-2.9) 04/23/18 05:20 Baso % (Auto) 0.5 % (0.2-1.0) 04/23/18 05:20 Neut # (Auto) 4.6 x10^3/uL (2.2-4.8) 04/23/18 05:20 Lymph # (Auto) 1.8 X10^3/uL (1.3-2.9) 04/23/18 05:20 [place] # (Auto) 1.0 x10^3/uL (0.3-0.8) H 04/23/18 05:20 Eos # (Auto) 0.2 x10^3/uL (0.0-0.2) 04/23/18 05:20 Baso # (Auto) 0.0 X10^3/uL (0.0-0.1) 04/23/18 05:20 Absolute Nucleated RBC 0.0 /100WBC 04/23/18 05:20 D-Dimer 560 ng/mL (0-400) H* 04/20/18 14:16 Sodium 142 mmol/L (136-145) 04/23/18 05:20 Corrected Sodium TNP 04/23/18 05:20 Potassium 3.7 mmol/L (3.5-5.1) 04/23/18 05:20 Chloride 108 mmol/L (98-107) H 04/23/18 05:20 Carbon Dioxide 27.3 mmol/L (21-32) 04/23/18 05:20 BUN 6 mg/dL (7-18) L 04/23/18 05:20 Creatinine 0.85 mg/dL (0.55-1.02) 04/23/18 05:20 Est GFR (MDRD) Af Amer > 60 (>60) 04/23/18 05:20 Est GFR (MDRD) Non-Af > 60 (>60) 04/23/18 05:20 Glucose 99 mg/dL (65-99) 04/23/18 05:20 Lactic Acid 1.0 mmol/L (0.4-2.0) 04/22/18 06:10 Calcium 8.2 mg/dL (8.5-10.1) L 04/23/18 05:20 Corrected Calcium 9.5 mg/dL (8.5-10.1) 04/23/18 05:20 Total Bilirubin 0.30 mg/dL (0.2-1.0) 04/23/18 05:20 AST 17 Units/L (15-37) 04/23/18 05:20 ALT 30 Units/L (12-78) 04/23/18 05:20 Alkaline Phosphatase 63 Units/L (46-116) 04/23/18 05:20 Total Protein 6.5 g/dL (6.4-8.2) 04/23/18 05:20 Albumin 2.4 g/dL (3.4-5.0) L 04/23/18 05:20 Globulin 4.1 g/dL (2.5-4.5) 04/23/18 05:20 Albumin/Globulin Ratio 0.6 Ratio (1.1-2.1) L 04/23/18 05:20 Specimen Type Clean catch urine 04/20/18 14:34 Urine Color Yellow (YELLOW) 04/20/18 14:34 Urine Appearance Slightly hazy (CLEAR) 04/20/18 14:34 Urine pH 6.0 (5.0 - 8.0) 04/20/18 14:34 Ur Specific [place] 1.015 (1.000-1.030) 04/20/18 14:34 Urine Protein 2+ (NEGATIVE) 04/20/18 14:34 Urine Glucose (UA) Negative (NEGATIVE) 04/20/18 14:34 Urine Ketones Negative (NEGATIVE) 04/20/18 14:34 Urine Occult Blood 1+ (NEGATIVE) 04/20/18 14:34 Urine Nitrite Positive (NEGATIVE) 04/20/18 14:34 Urine Bilirubin Negative (NEGATIVE) 04/20/18 14:34 Urine Urobilinogen Normal (NORMAL) 04/20/18 14:34 Ur Leukocyte Esterase 1+ (NEGATIVE) 04/20/18 14:34 Urine RBC 0-2 /HPF (NONE SEEN) 04/20/18 14:34 Urine WBC 30-50 /HPF (NONE SEEN) 04/20/18 14:34 Ur Squamous Epith Cells Few /HPF (NEGATIVE) 04/20/18 14:34 Urine Bacteria 3+ /HPF (NEGATIVE) 04/20/18 14:34 Ur Culture Indicated? Yes/culture set up 04/20/18 14:34 Vancomycin Trough 6.0 ug/mL (15-20) L 04/22/18 08:20 - Plan (1) Lower extremity cellulitis Status: Acute Qualifiers: Laterality: left Qualified Code(s): L03.116 - Cellulitis of left lower limb Plan: IV VANCOMYCIN, IV ZOSYN, OBTAIN CT WITH CONTAST, CONTINUE TO MONITOR
== END 2018-04-23 13:30 | disposition home or self-care (01) ==
LOC: MED/SURG 13:56 → ER 13:56 → MED/SURG 19:10
PROVIDERS: ADMIT Internal Medicine; ATTEND Internal Medicine
DX: R10.9 Unspecified abdominal pain; L03.314 Cellulitis of groin; R59.0 Localized enlarged lymph nodes; M79.605 Pain in left leg; R82.998 Other abnormal findings in urine; B96.20 Unspecified Escherichia coli [E. coli] as the cause of diseases classified elsewhere; L03.116 Cellulitis of left lower limb
CPT/HCPCS: 36415; 74177; 80053; 80202; 81001; 82565; 83605; 85025; 85378; 87040; 87086; 87088; 87186; 93971; 96365; 96367; 96374; 96375; 99284; A4222; Q0169; G0378; J1885; J2175; J2270; J2405; J2543; J2550; J3370; J3490; J7030; J7050; J7060